=== PATIENT | female | born 2000 | race Caucasian/White ===

== ENCOUNTER 2021-01-11 00:19 | Emergency (ER) | payer OTHER ==
[~2021-01-11] VITALS: Ht 173 cm; Wt 1.7 kg
[2021-01-11 00:28] VITALS: TEMP 98.1
[2021-01-11] MEDS ORDERED: ILOTYCIN5 MG/GM OP (01:50)
[2021-01-11 03:10] VITALS: BP 115/75; PULSE 97
== END 2021-01-11 03:10 | disposition home or self-care (01) ==
LOC: COL.ER 00:19
DX: H57.13 Ocular pain, bilateral (principal); T59.91XA Toxic effect of unspecified gases, fumes and vapors, accidental (unintentional), initial encounter